=== PATIENT | female | born 1950 | race Caucasian/White ===

== ENCOUNTER → 2017-09-15 13:37 | Outpatient (POV) | payer MEDICARE, OTHER, SELFPAY | PROVIDERS: PCP Nurse Practitioner Family; Visit Provider Internal Medicine | DX: Z00.00 Encounter for general adult medical examination without abnormal findings (principal) ==

== ENCOUNTER → 2017-09-30 12:34 | Outpatient (CLI) | payer MEDICARE, OTHER, SELFPAY ==
[2017-09-30 13:51] VITALS: PULSE 79
[2017-09-30 13:55] VITALS: BP 132/74; PULSE 88; RESP 14; O2SAT 96
[2017-09-30 14:15] VITALS: BP 144/76; PULSE 104; RESP 20; O2SAT 98
--- NOTE | 2017-09-30 14:30 | CT_ITS ---
CT chest wo con HISTORY: ITS.REASON: DYSPNEA ON EXERTION,LUPUS,CHRONIC COUGH ORDERING PHYSICIAN: Kit Dan MD PATIENT AGE: 66 years TECHNIQUE: Axial images obtained. Sagittal and coronal reformatted images are also generated and reviewed. CONTRAST: 75ml Isovue 370 I.V. COMPARISON: None FINDINGS: There are few scattered small lymph nodes within mediastinum, jamarcus, and axilla. The largest mediastinal node is in the pretracheal region and measures 1.7 x 1.4 cm and contains some central coarse calcification. Normal heart size. No pericardial effusion. No mediastinal or hilar mass. No evidence of aortic aneurysm. Mild biapical pleural thickening with some nodularity present in the left apex measuring up to 10 x 5 mm. Small parenchymal opacity is present in medial aspect of the right upper lobe 4 mm may be due to an area of fibrosis. 4 mm nodular opacity right middle lobe nonspecific. There is some subpleural nodularity left upper lobe laterally and may be related to fibrotic change. There are few scattered calcified granulomas in both lungs. There is mild bronchial thickening and mild fibrotic changes in the left lung base. IMPRESSION: 1. 10 x 5 mm left apical nodule possibly related to fibrotic change. There are other areas of subpleural thickening in this region which may be related to fibrosis. Recommend 6 month follow-up to confirm stability. 2. Old granulomatous disease. 3. Mild bronchial thickening consistent with bronchitis
== END ==
PROVIDERS: PCP Nurse Practitioner Family; Visit Provider Internal Medicine
DX: R76.11 Nonspecific reaction to tuberculin skin test without active tuberculosis (principal)
CPT/HCPCS: 36415; 71250; 94060; 94618; 94640; 94726; 94729

== ENCOUNTER → 2018-02-09 09:32 | Outpatient (POV) | payer MEDICARE, OTHER, SELFPAY ==
[2018-02-10 10:25] LABS: Hep A Ab, IgM Negative (Negative); Hepatitis B Core Antibody IgM Negative (Negative); Hepatitis B Surface Antigen Negative (Negative)
[2018-02-11 06:29] LABS: Hepatitis C Antibody <0.1 s/co ratio (0.0-0.9)
== END ==
PROVIDERS: PCP Nurse Practitioner Family; Visit Provider Internal Medicine
DX: D69.6 Thrombocytopenia, unspecified (principal); R53.83 Other fatigue
CPT/HCPCS: 36415; 80074

== ENCOUNTER → 2018-07-15 08:07 | Outpatient (POV) | payer MEDICARE, OTHER, SELFPAY | PROVIDERS: Visit Provider Dentist | DX: Z00.00 Encounter for general adult medical examination without abnormal findings (principal) ==

== ENCOUNTER → 2018-08-02 08:42 | Outpatient (CLI) | payer MEDICARE, OTHER, SELFPAY ==
--- NOTE | 2018-08-02 09:15 | MM_ITS ---
MM Dig screening mamm BI w/CAD ORDERING PHYSICIAN : Feroz Carrasco MD PATIENT AGE: 67 years GENDER: Female COMPARISON: May 2017, March 2016, October 2013 INDICATION: ITS.REASON: SCREENING no hormones. No new complaints noncontributory family history. Previous biopsy upper-outer quadrant right breast TECHNIQUE: Standard CC and MLO images were obtained. R2 CAD reviewed. FINDINGS: Minimal residual fibrolinear elements scattered throughout the breast and most evident towards upper-outer quadrant. No significant new findings no dominant mass nor suspicious appearing calcifications. RIGHT BREAST: Stable right breast. No new findings LEFT BREAST:No new areas of concern follow-up one year A few tiny punctate benign calcifications scattered throughout the left breast but no suspicious grouped calcifications IMPRESSION: Stable bilateral mammogram . No significant new findings either breast Bilateral follow-up in one year BI-RADS Category: 1 Negative RECOMMENDED FOLLOW-UP: 1YR 1 YEAR FOLLOW-UP (A letter has been sent to the patient regarding results of the study.)
== END ==
PROVIDERS: PCP Internal Medicine Adolescent Medicine; Visit Provider Internal Medicine Adolescent Medicine
DX: Z12.31 Encounter for screening mammogram for malignant neoplasm of breast (principal)
CPT/HCPCS: 77067

== ENCOUNTER → 2018-11-17 09:21 | Outpatient (CLI) | payer MEDICARE, OTHER, SELFPAY ==
[2018-11-17 09:40] LABS: Basophils % 0.7 % (0.1-2.0); Eosinophils # 0.4 K/mm3 (0.0-0.4); Eosinophils % 7.1 % (0.1-12.0); Hematocrit 40.3 % (37.0-47.0); Hemoglobin 13.6 g/dL (12.2-16.2); Lymphocytes # 2.4 K/mm3 (0.7-4.5); Lymphocytes % 38.6 % (10-50); Mean Corpuscular HGB Conc 33.8 g/dL (31.8-35.4); Mean Corpuscular Hemoglobin 30.9 pg (27.0-31.2); Mean Corpuscular Volume 91.5 fl (81-99); Mean Platelet Volume 8.7 fl (7.4-10.4); Monocytes # 0.5 K/mm3 (0.1-1.0); Monocytes % 8.8 % (1.7-9.3); Neutrophils # 2.8 K/mm3 (1.8-7.8); Neutrophils % 44.9 % (37.0-80.0); Platelet Count 203 K/mm3 (142-424); Red Blood Count 4.41 M/mm3 (4.20-5.40); Red Cell Distribution Width 13.3 % (11.5-17.5); White Blood Count 6.2 K/mm3 (4.8-10.8)
[2018-11-19 09:25] LABS: Peripheral Smear Review Scanned Result
== END ==
PROVIDERS: Visit Provider Internal Medicine Adolescent Medicine
DX: D69.6 Thrombocytopenia, unspecified (principal); D72.828 Other elevated white blood cell count
CPT/HCPCS: 36415; 85025; 85060

== ENCOUNTER 2018-12-21 09:30 | Outpatient (RCR) | payer MEDICARE, OTHER, SELFPAY ==
--- NOTE | 2018-12-03 13:43 | HMH.OTEV ---
PHYSICIAN CERTIFICATION: I certify the specified therapy services for Haley Bojorquezchie are required, authorized, and reviewed every 30 days.
== END 2018-12-21 09:35 | disposition home or self-care (01) ==
LOC: OT 09:30
PROVIDERS: Visit Provider Nurse Practitioner Family
DX: M25.512 Pain in left shoulder (principal); M25.511 Pain in right shoulder
CPT/HCPCS: 97014; 97110; 97165; G0283

== ENCOUNTER → 2018-12-22 09:48 | Outpatient (CLI) | payer MEDICARE, OTHER, SELFPAY ==
--- NOTE | 2018-12-22 09:59 | XR_ITS ---
XR shoulder LT min 2V HISTORY: ITS.REASON: LT SHOULDER PAIN ORDERING PHYSICIAN: Feroz Carrasco MD PATIENT AGE: 68 years Comparison: 12/22/2014 FINDINGS: Calcification noted at the acromioclavicular joint in the superior periarticular region as before. No fracture or dislocation. No lytic or blastic there is some spurring along the inferior aspect of the acromioclavicular joint. The glenohumeral joint has an unremarkable appearance. IMPRESSION: Acromioclavicular arthropathy not significantly changed
== END ==
PROVIDERS: PCP Internal Medicine Adolescent Medicine; Visit Provider Internal Medicine Adolescent Medicine
DX: M25.512 Pain in left shoulder (principal)
CPT/HCPCS: 73030

== ENCOUNTER → 2019-01-10 13:50 | Outpatient (CLI) | payer MEDICARE, OTHER, SELFPAY ==
--- NOTE | 2019-01-10 13:51 | MR_ITS ---
MR shoulder LT wo con HISTORY:Left shoulder pain with limited range of motion ITS.REASON: shoulder pain ORDERING PHYSICIAN: Carolina Garnett MD PATIENT AGE: 68 years Comparison: 12/22/2018 TECHNIQUE: Standard multiplanar multiecho sequences are performed without contrast. FINDINGS: There is a complete tear of the distal aspect of the supraspinatus tendon with mild retraction and thickening of the tendinous fibers. Prominent hypertrophic changes are present at the acromioclavicular joint with impingement upon the musculotendinous junction of the supraspinatus anteriorly. There is a low-lying acromion laterally with an acromiohumeral space at 5 mm. The infraspinatus tendon and teres minor tendons are intact. There is tendinopathy/tendinosis of the subscapularis tendon with some increased signal intensity distally which may indicate a partial tear. No obvious labral tear. Small shoulder joint effusion. There are osteoarthritic changes of the glenohumeral joint. The bicipital tendon is in place but is not well seen superiorly. No fracture or dislocation. There is a small amount of fluid in the subcoracoid region. IMPRESSION: 1. Complete tear of the supraspinatus tendon with mild retraction of the musculotendinous fibers with associated prominent hypertrophic changes of the acromioclavicular joint and subacromial stenosis 2. Tendinopathy/tendinosis of the subscapularis tendon with possible partial tear distally. 3. Osteoarthritis of the glenohumeral joint with small shoulder joint effusion and subcoracoid bursitis
== END ==
PROVIDERS: PCP Internal Medicine Adolescent Medicine; Visit Provider Orthopaedic Surgery
DX: M25.512 Pain in left shoulder (principal)
CPT/HCPCS: 73221

== ENCOUNTER → 2019-01-13 07:52 | Outpatient (POV) | payer MEDICARE, OTHER, SELFPAY ==
--- NOTE | 2019-01-13 13:30 | XR_ITS ---
XR shoulder LT min 2V HISTORY: Pain ITS.REASON: GRASHEY AND AXILLARY VIEWS PLEASE ORDERING PHYSICIAN: Amanda Hall III, MD PATIENT AGE: 68 years Comparison: 12/22/2018 FINDINGS: Grashey and axillary views are obtained. There is mild osteoarthritic change of the glenohumeral joint with mild narrowing of that joint space. Osteoarthritic changes are present at the acromioclavicular joint without significant subacromial stenosis. No evidence of dislocation. IMPRESSION: Mild osteoarthritis of the acromioclavicular joint and glenohumeral joint not significant changed
== END ==
PROVIDERS: PCP Internal Medicine Adolescent Medicine; Referring Provider Orthopaedic Surgery; Visit Provider Dentist
DX: M25.512 Pain in left shoulder (principal)
CPT/HCPCS: 73030

== ENCOUNTER → 2019-02-17 09:40 | Outpatient (POV) | payer MEDICARE, OTHER, SELFPAY | PROVIDERS: Visit Provider Dentist | DX: Z00.00 Encounter for general adult medical examination without abnormal findings (principal) ==

== ENCOUNTER → 2019-04-04 08:44 | Outpatient (CLI) | payer MEDICARE, OTHER, SELFPAY ==
[2019-04-04 09:22] LABS: Basophils % 0.2 % (0.1-2.0); Eosinophils # 0.3 K/mm3 (0.0-0.4); Eosinophils % 5.3 % (0.1-12.0); Hematocrit 40.9 % (37.0-47.0); Hemoglobin 12.7 g/dL (12.2-16.2); Lymphocytes # 2.1 K/mm3 (0.7-4.5); Lymphocytes % 37.1 % (10-50); Mean Corpuscular Hemoglobin 27.9 pg (27.0-31.2); Mean Corpuscular Volume 90.3 fl (81-99); Mean Platelet Volume 9.1 fl (7.4-10.4); Monocytes # 0.4 K/mm3 (0.1-1.0); Monocytes % 7.7 % (1.7-9.3); Neutrophils # 2.8 K/mm3 (1.8-7.8); Neutrophils % 49.8 % (37.0-80.0); Platelet Count 198 K/mm3 (142-424); Red Blood Count 4.53 M/mm3 (4.20-5.40); Red Cell Distribution Width 13.1 % (11.5-17.5); White Blood Count 5.6 K/mm3 (4.8-10.8)
[2019-04-04 10:33] LABS: Alanine Aminotransferase 23 U/L (12-78); Albumin Level 3.5 gm/dL (3.4-5.0); Alkaline Phosphatase 81 U/L (46-116); Anion Gap 11.3 mEq/L (5-15); Aspartate Amino Transferase 14 U/L (15-37); Bilirubin,Total 0.4 mg/dL (0.2-1.0); Blood Urea Nitrogen 15 mg/dL (7-18); Calcium 9.3 mg/dL (8.5-10.1); Carbon Dioxide 31 mmol/L (21.0-32.0); Chloride 103 mmol/L (98-107); Creatinine,Serum 0.79 mg/dL (0.55-1.02); Estimated Glomerular Filt Rate 72 ml/min (>60); GFR (African American) 87 ML/MIN (>60); Globulin 3.6 gm/dl (1.3-3.2); Glucose 98 mg/dL (74-106); Potassium 4.3 mmoL/L (3.5-5.1); Sodium 141 mmol/L (136-145); Total Protein,Serum 7.1 gm/dL (6.4-8.2)
== END ==
PROVIDERS: Visit Provider Orthopaedic Surgery
DX: M75.100 Unspecified rotator cuff tear or rupture of unspecified shoulder, not specified as traumatic (principal); L03.90 Cellulitis, unspecified
CPT/HCPCS: 36415; 80053; 85025; 93005

== ENCOUNTER → 2019-05-19 08:20 | Outpatient (POV) | payer MEDICARE, OTHER, SELFPAY | PROVIDERS: Visit Provider Dentist | DX: Z00.00 Encounter for general adult medical examination without abnormal findings (principal) ==

== ENCOUNTER → 2019-07-08 08:32 | Outpatient (CLI) | payer MEDICARE, OTHER, SELFPAY ==
--- NOTE | 2019-07-08 08:35 | XR_ITS ---
PROCEDURE: XR SHOULDER LT MIN 2V CLINICAL INDICATION: Shoulder pain Follow-up surgery COMPARISON: SHOU2L [id number] VIEW COMP.-LT from 12/22/2014 SHOU2R [id number] VIEW COMP.-RT from 12/22/2014 [id number] XR shoulder LT min 2V from 12/22/2018 FINDINGS: Status post acromioclavicular osteotomy. There are 3 anchor screws within the proximal humerus. There is good alignment with no evidence of acute fracture or dislocation. Mild osteoarthritic changes are present at the glenohumeral joint. IMPRESSION: Postsurgical changes with no acute finding Dictated by: Larry Mancia MD 07/08/2019 15:29 Electronically signed by Larry Mancia MD in [place] 07/08/2019 15:29
== END ==
PROVIDERS: PCP Internal Medicine Adolescent Medicine; Visit Provider Orthopaedic Surgery
DX: M19.012 Primary osteoarthritis, left shoulder (principal)
CPT/HCPCS: 73030

== ENCOUNTER 2019-08-09 08:30 | Outpatient (RCR) | payer MEDICARE, OTHER, SELFPAY ==
--- NOTE | 2019-04-26 09:08 | HMH.OTOPEV ---
OT Inpatient Evaluation Rehab OT Outpatient Eval Start: 04/26/19 08:45 Freq: Status: Active Protocol: Document 04/26/19 08:46 TFRY (Rec: 04/26/19 09:06 TFRY [id number]) Electronically Signed By Scarlett Cabral OT 04/26/19 08:46 Outpatient Therapy Subjective History Subjective History This is a 68 year old right handed female referred to occupational therapy after undergoing left shoulder arthroscopy 04/12/19 with LHBT tenotomy, SAD. DCE, RTC repair . Patient is unable to recall doing anything to her shoulder it just started hurting. Chief Complaint Pain Symptom Type Dull Symptoms Relieved By Brace/Support Symptoms Aggravated By Physical Activity Prior Functional Limitations None Current Functional Limitations Reaching,Lifting,Housework, Dressing,Driving,Sleeping Symptom Description Activity Dependent Level of pain today (0-10) 0 Pain scale - at its best (0-10) 0 Pain scale - at its worst (0-10) 2 Shoulder/Elbow Eval Shoulder Objective Measurements Shoulder ROM Left Shoulder ROM Limitations Pain Shoulder Abduction Passive Range of 65 Motion (degrees) Shoulder Flexion Passive Range of Motion 75 (degrees) Shoulder External Rotation Passive Range NT of Motion (degrees) Shoulder Internal Rotation Passive Range WFL of Motion (degrees) pain with passive ROM shoulder exam left standard decreased ROM shoulder exam standard left Shoulder MMT Shoulder Strength Reason Not Measured Orthopedic Precautions Elbow Objective Measurements OT Outpatient Assessment Impairments Problems/Impairments Impaired Range of Motion, Impaired Strength,Impaired Lifting,Impaired Dressing, Impaired Shower/Bathing, Impaired Household Care, Subjective C/O Pain Prognosis Rehab Potential Good Clinical Impression Consistent with Diagnosis Yes Short Term Goals Number of Weeks 4 Increase Range of Motion Yes: Left Shoulder PROM - WFL Increase Strength Yes: Left Shoulder strength - 3/5 Improve Ability to Dress Self Yes Improve Ability to Shower/Bathe Self Yes Improve Ability For Household Care Yes Decrease Subjective C/O Pain Yes: pain a 1 at worse Patient to be Ind w/ HEP Yes Patient to be Ind
--- NOTE | 2019-06-23 08:59 | HMH.RHREAS ---
Rehab Reassessment Rehab OP Re-assessment Start: 06/23/19 07:46 Freq: Status: Active Protocol: Document 06/23/19 08:52 TFRY (Rec: 06/23/19 08:59 TFRY [id number]) Electronically Signed By Scarlett Cabral OT 06/23/19 08:52 Rehab Re-assessment Objective Objective Notes Patient seen this date for skilled occupational therapy services. Reassessment of left shoulder ROM; AROM - left shoulder - flexion - 0-160; abduction - 0-130; int. rot. - 0-60; ext. rot. - 0-42. PROM - flexion - 0-164; abduction - 0-160; int. rot. - 0-65; ext. rot. - 0- 52. Reassessment of strength - flexion 3+/5; abduction - 3+/5; int. rot. - 3+/5; ext. rot. - 3+/5. Patient reports that shoulder is 80% better. Patient reports no pain in shoulder and independence with ADL's and house hold tasks. Assessment Progress Assessment Progressing as Expected Assessment Notes ROM and strength improving Patient goals met STG S - 8/8; LTG's 6?8 Goals Not Met strength and independence with HEP Plan Plan Continue occupational therapy working toward unmet goals Frequency of Therapy 2 Duration of therapy 4 PHYSICIAN CERTIFICATION: I certify the specified therapy services for Haley Long are required, authorized, and reviewed every 30 days.
--- NOTE | 2019-07-26 08:32 | HMH.RHREAS ---
Rehab Reassessment Rehab OP Re-assessment Start: 06/23/19 07:46 Freq: Status: Active Protocol: Document 07/26/19 07:52 TFRY (Rec: 07/26/19 08:32 TFRY [id number]) Electronically Signed By Scarlett Cabral OT 07/26/19 07:52 Rehab Re-assessment Subjective Subjective My shoulder is about 80% better. Objective Objective Notes Patient seen this date for skilled occupational therapy services. See exercise flow sheet for exercises. Reassesment of left shoulder: AROM - WFL; Left shoulder Strength - flexion - 4-/5; abduction - 3+/5; int. rot. - 3+/5; external rot. - 3+/5. Patient reporting being able to do more at home with left upper extremity without the pain. Assessment Progress Assessment Progressing as Expected Assessment Notes Strength noted to be improving . Patient goals met All except strength goal and advanced HEP Goals Not Met Strength Plan Plan Continue occupational therapy working on increasing left upper extremity strength. Frequency of Therapy 1x per week Duration of therapy 4 weeks Time and Billing Re-Eval Time 5 Re-Eval Billing Units 0 PHYSICIAN CERTIFICATION: I certify the specified therapy services for Haley Long are required, authorized, and reviewed every 30 days.
== END 2019-08-09 08:35 | disposition home or self-care (01) ==
LOC: OT 08:30
PROVIDERS: PCP Internal Medicine Adolescent Medicine; Visit Provider Orthopaedic Surgery
DX: M75.102 Unspecified rotator cuff tear or rupture of left shoulder, not specified as traumatic (principal)
CPT/HCPCS: 97014; 97110; 97140; 97164; 97165; G0283

== ENCOUNTER → 2019-10-11 07:42 | Outpatient (CLI) | payer MEDICARE, OTHER, SELFPAY ==
--- NOTE | 2019-10-11 08:00 | MM_ITS ---
PROCEDURE: MM DIG SCREENING MAMM BI W/CAD CLINICAL INDICATION: SCREENING There is no personal or family history of breast cancer COMPARISON: [id number] DIG MAMM-DX UNI ADD VIEWS-RT from 04/08/2016 [facility] DIG MAMM-SCREEN VERONICA W/CAD from 05/18/2017 [facility] MM Dig screening mamm BI w/CAD from 08/02/2018 TECHNIQUE: Standard CC and MLO images and 3D Tomosynthesis was obtained. R2 CAD reviewed. FINDINGS: Diffuse scattered fibroglandular densities are seen throughout both breasts and the findings of bilateral and symmetrical.. There is a benign-appearing calcification right breast. There is no suspicious lesion and no suspicious microcalcifications. Malcolm images were reviewed showing no abnormality. IMPRESSION: Moderate diffuse breast density with no suspicious lesions seen BI-RAD Category: 2 Benign Finding(s) FOLLOW-UP: 1YR 1 Year Follow-up (A letter has been sent to the patient regarding results of the study.) Dictated by: Dr. Ming Florez MD 10/13/2019 07:[address] Ming Florez MD in [place] 10/13/2019 07:56
== END ==
PROVIDERS: PCP Internal Medicine Adolescent Medicine; Visit Provider Internal Medicine Adolescent Medicine
DX: Z12.31 Encounter for screening mammogram for malignant neoplasm of breast (principal)
CPT/HCPCS: 77063; 77067

== ENCOUNTER → 2020-09-18 16:16 | Outpatient (CLI) | payer MEDICARE, OTHER, SELFPAY ==
[2020-09-20 11:38] LABS: Covid-19 Nasal PCR Sendout P&C NEGATIVE
== END ==
PROVIDERS: PCP Internal Medicine Adolescent Medicine; Visit Provider Internal Medicine Adolescent Medicine
DX: Z11.52 Encounter for screening for COVID-19 (principal)
CPT/HCPCS: U0004

== ENCOUNTER → 2021-02-14 10:06 | Outpatient (CLI) | payer MEDICARE, OTHER, SELFPAY ==
[2021-02-14 10:39] LABS: Basophils % 0.3 % (0.1-2.0); Eosinophils # 0.4 K/mm3 (0.0-0.4); Eosinophils % 7.2 % (0.1-12.0); Hemoglobin 13.8 g/dL (12.2-16.2); Lymphocytes # 2.5 K/mm3 (0.7-4.5); Lymphocytes % 42.9 % (10-50); Mean Corpuscular HGB Conc 33.5 g/dL (31.8-35.4); Mean Corpuscular Hemoglobin 29.8 pg (27.0-31.2); Monocytes # 0.5 K/mm3 (0.1-1.0); Monocytes % 8.5 % (1.7-9.3); Neutrophils # 2.4 K/mm3 (1.8-7.8); Neutrophils % 41.1 % (37.0-80.0); Platelet Count 97 K/mm3 (142-424); Red Blood Count 4.61 M/mm3 (4.20-5.40); Red Cell Distribution Width 13.2 % (11.5-17.5); White Blood Count 5.8 K/mm3 (4.8-10.8)
[2021-02-14 11:00] LABS: Alanine Aminotransferase 15 U/L (12-78); Albumin Level 4.5 g/dl (3.5-5.0); Albumin/Globulin Ratio 1.5 (1.1-1.8); Alkaline Phosphatase 88 U/L (38-126); Anion Gap 12.7 mEq/L (5-15); Aspartate Amino Transferase 33 U/L (14-36); Bilirubin,Total 0.5 mg/dl (0.2-1.3); Blood Urea Nitrogen 14 mg/dl (7-17); Calcium 9.7 mg/dl (8.4-10.2); Carbon Dioxide 31 mmol/L (22.0-30.0); Chloride 101 mmol/L (98-107); Chol/HDL Ratio 4.3 (1-3.5); Cholesterol 202 mg/dl (140-200); Estimated Glomerular Filt Rate 82 ml/min (>60); GFR (African American) 100 ML/MIN (>60); Globulin 3.1 g/dL (1.3-3.2); Glucose 93 mg/dl (74-100); HDL Cholesterol 47 mg/dl (40-60); Potassium 4.7 mmoL/L (3.5-5.1); Sodium 140 mmol/L (136-145); Total Protein,Serum 7.6 g/dl (6.3-8.2); Triglycerides 349 mg/dl (30-150); VLDL Cholesterol 70 mg/dL (0-40)
[2021-02-14 11:11] LABS: Direct LDL Cholesterol 78.72 mg/dL (100-129)
[2021-02-14 11:17] LABS: 25-OH Vitamin D, Total 42.4 ng/mL (30-100)
[2021-02-14 11:55] LABS: Vitamin B12 > 1000 pg/mL (239-931)
[2021-02-15 09:18] LABS: Thyroid Peroxidase Antibodies 23 IU/mL (0-34)
== END ==
PROVIDERS: Visit Provider Internal Medicine Adolescent Medicine
DX: E78.49 Other hyperlipidemia (principal); E53.8 Deficiency of other specified B group vitamins; K21.9 Gastro-esophageal reflux disease without esophagitis; M75.122 Complete rotator cuff tear or rupture of left shoulder, not specified as traumatic; M19.012 Primary osteoarthritis, left shoulder
CPT/HCPCS: 36415; 80053; 80061; 82306; 82607; 85025; 86376

== ENCOUNTER → 2021-02-22 08:01 | Outpatient (CLI) | payer MEDICARE, OTHER, SELFPAY ==
[2021-02-26 09:54] LABS: H. pylori Stool Ag, EIA Negative (Negative)
== END ==
PROVIDERS: Visit Provider Internal Medicine Adolescent Medicine
DX: K21.9 Gastro-esophageal reflux disease without esophagitis (principal); E03.9 Hypothyroidism, unspecified; E78.49 Other hyperlipidemia; E53.8 Deficiency of other specified B group vitamins
CPT/HCPCS: 87338

== ENCOUNTER → 2021-03-04 09:12 | Outpatient (CLI) | payer MEDICARE, OTHER, SELFPAY ==
--- NOTE | 2021-03-04 09:15 | MM_ITS ---
PROCEDURE INFORMATION: Exam: MG Screening 3D Mammography Exam date and time: 03/04/2021 9:15 AM Age: 70 years old Clinical indication: Encounter for screening mammogram for malignant neoplasm of breast TECHNIQUE: Imaging protocol: Screening tomosynthesis and 2D mammography including computer-aided detection (CAD) when performed. COMPARISON: 1. MG MM DIG SCREENING MAMM BI W/CAD 10/11/2019 8:07 AM 2. MG [facility] MM Dig screening mamm BI w/CAD 08/02/2018 9:22 AM FINDINGS: MAMMOGRAPHY: Breast composition: The breast tissue is composed of scattered areas of fibroglandular density. Mass: None. Architectural distortion: None. Calcifications: No suspicious calcifications. Asymmetric density: None. Skin thickening: None. Axillary adenopathy: None. IMPRESSION: No mammographic evidence of malignancy. Annual screening is recommended unless otherwise clinically indicated. ASSESSMENT: BI-RADS Category 1: Negative
--- NOTE | 2021-03-04 09:15 | XR_ITS ---
PROCEDURE: XR DEXA AXIAL SKELETON CLINICAL HISTORY: ROUTINE MEDICAL EXAM COMPARISON: CR BONE3 BONE DENSITOMETRY(HIP:LT SPINE from 05/18/2017 FINDINGS: The right hip BMD is 0.629 with a T-score of -2.0. The left hip BMD is 0.618 with a T-score of -2.1. The lumbar spine BMD is 1.002 with a T-score of -0.4. Previously the lowest bone density was in the right femoral neck with a T-score of -2.2 IMPRESSION: This patient is considered osteopenic according to the World Health Organization criteria. Bone density is between 10 and 25 percent below young normal. Fracture risk is moderate. Treatment is advised. Based on these results a follow-up exam is recommended in 2 year. Dictated by: Larry Mancia MD 03/05/2021 07:56 Larry Mancia MD in [place] 03/05/2021 07:56
== END ==
PROVIDERS: PCP Internal Medicine Adolescent Medicine; Visit Provider Internal Medicine Adolescent Medicine
DX: Z12.31 Encounter for screening mammogram for malignant neoplasm of breast (principal); Z13.820 Encounter for screening for osteoporosis; Z78.0 Asymptomatic menopausal state
CPT/HCPCS: 77063; 77067; 77080

== ENCOUNTER → 2022-03-21 10:18 | Outpatient (CLI) | payer MEDICARE, OTHER, SELFPAY ==
--- NOTE | 2022-03-21 10:23 | MM_ITS ---
PROCEDURE INFORMATION: Exam: MG Bilateral Screening 3D Mammography Exam date and time: 03/21/2022 10:16 AM Age: 71 years old Clinical indication: Screening examination TECHNIQUE: Imaging protocol: Bilateral Screening tomosynthesis and 2D mammography including computer-aided detection (CAD) when performed. COMPARISON: 1. MG MM DIG SCREENING MAMM BI W/CAD 03/04/2021 9:36 AM 2. MG MM DIG SCREENING MAMM BI W/CAD 10/11/2019 8:07 AM FINDINGS: MAMMOGRAPHY: Breast composition: There are scattered areas of fibroglandular density. Mass: None. Architectural distortion: None. Calcifications: No suspicious calcifications. Asymmetric density: None. Skin thickening: None. Axillary adenopathy: None. IMPRESSION: No mammographic evidence of malignancy. Annual screening is recommended unless otherwise clinically indicated. ASSESSMENT: BI-RADS Category 1: Negative
== END ==
PROVIDERS: PCP Internal Medicine Adolescent Medicine; Visit Provider Internal Medicine Adolescent Medicine
DX: Z12.31 Encounter for screening mammogram for malignant neoplasm of breast (principal)
CPT/HCPCS: 77063; 77067

== ENCOUNTER 2024-04-06 07:09 | Outpatient (CLI) | payer MEDICARE, OTHER, SELFPAY ==
[2024-04-06 07:37] LABS: Basophils % 0.7 % (0.1-2.0); Eosinophils # 0.3 K/mm3 (0.0-0.4); Eosinophils % 5.4 % (0.1-12.0); Hematocrit 39.6 % (37.0-47.0); Hemoglobin 12.5 g/dL (12.2-16.2); Lymphocytes # 2.4 K/mm3 (0.7-4.5); Lymphocytes % 42.9 % (10-50); Mean Corpuscular HGB Conc 31.6 g/dL (31.8-35.4); Mean Corpuscular Hemoglobin 30.4 pg (27.0-31.2); Mean Corpuscular Volume 96.3 fl (81-99); Mean Platelet Volume 9.2 fl (7.4-10.4); Monocytes # 0.4 K/mm3 (0.1-1.0); Monocytes % 7.6 % (1.7-9.3); Neutrophils # 2.5 K/mm3 (1.8-7.8); Neutrophils % 43.5 % (37.0-80.0); Platelet Count 252 K/mm3 (142-424); Red Blood Count 4.12 M/mm3 (4.20-5.40); Red Cell Distribution Width 13.8 % (11.5-17.5); White Blood Count 5.7 K/mm3 (4.8-10.8)
[2024-04-06 09:08] LABS: Alanine Aminotransferase 15 U/L (12-78); Albumin Level 3.7 g/dl (3.5-5.0); Albumin/Globulin Ratio 1.3 (1.1-1.8); Alkaline Phosphatase 75 U/L (38-126); Anion Gap 8.1 mEq/L (5-15); Aspartate Amino Transferase 26 U/L (14-36); Bilirubin,Total 0.3 mg/dl (0.2-1.3); Blood Urea Nitrogen 13 mg/dl (7-17); Calcium 9.4 mg/dl (8.4-10.2); Carbon Dioxide 31 mmol/L (22.0-30.0); Chloride 105 mmol/L (98-107); Chol/HDL Ratio 4.4 (1-3.5); Cholesterol 200 mg/dl (140-200); Estimated Glomerular Filt Rate 82 ml/min (>60); GFR (African American) 99 ML/MIN (>60); Globulin 2.9 g/dL (1.3-3.2); Glucose 90 mg/dl (74-100); HDL Cholesterol 45 mg/dl (40-60); Potassium 4.1 mmoL/L (3.5-5.1); Sodium 140 mmol/L (136-145); Total Protein,Serum 6.6 g/dl (6.3-8.2); Triglycerides 324 mg/dl (30-150); VLDL Cholesterol 65 mg/dL (0-40)
[2024-04-06 09:21] LABS: Direct LDL Cholesterol 80.06 mg/dL (100-129)
[2024-04-06 09:24] LABS: 25-OH Vitamin D, Total 43.8 ng/mL (30-100)
[2024-04-06 09:39] LABS: Thyroid Stimulating Hormone 2.34 uIU/mL (0.465-4.68)
== END 2024-04-06 23:59 | disposition home or self-care (01) ==
LOC: LAB 07:10
PROVIDERS: PCP Internal Medicine Adolescent Medicine; Visit Provider Nurse Practitioner Family
DX: M85.80 Other specified disorders of bone density and structure, unspecified site (principal); E78.2 Mixed hyperlipidemia; D69.6 Thrombocytopenia, unspecified; E03.9 Hypothyroidism, unspecified
CPT/HCPCS: 36415; 80053; 80061; 82306; 84443; 85025

== ENCOUNTER 2024-07-14 13:41 | Outpatient (CLI) | payer MEDICARE, OTHER, SELFPAY | END 2024-07-14 23:59 | disposition home or self-care (01) | LOC: LAB.DROPOF 07-15 08:41 | PROVIDERS: PCP Student in an Organized Health Care Education/Training Program; Visit Provider Student in an Organized Health Care Education/Training Program | DX: R39.9 Unspecified symptoms and signs involving the genitourinary system (principal) | CPT/HCPCS: 87086; 87088; 87186 ==

== ENCOUNTER 2025-05-30 08:49 | Outpatient (CLI) | payer MEDICARE, SELFPAY ==
--- OUTSIDE RECORDS SUMMARY | 2024-12-10 17:30 | XMS_ITS ---
Author Organization [facility] Address [address] [place] [address] Care Team Providers Care Combustion Analyst Name Role Phone Feroz Carrasco Primary Care Provider Migration, Provider Unavailable Unavailable [facility] Encounter Medications Medication SIG (Take, Route, Frequency, Duration) Notes Start Date End Date Status Vitamin B 12 500 MCG 1 tab(s) orally once a day; Duration: 30 day(s) 01/21/2018 Active Calcium 600 + D 600 MG-200 UNITS 1 TAB(S) ORALLY DAILY *Please review and pick correct [facility]ulatio [facility]. If intended option is not shown, discontinue and re-order from Quick Search* Active CLOBETASOL (EQV-TEMOVATE) 0.05% 1 JAZMÍN APPLIED TOPICALLY 2 TIMES A DAY; Duration: 30 DAYS *Please review for potential replacement for e-prescription and drug interaction check* 04/02/2023 Active Alendronate Sodium 35 MG 1 tab(s) orally once a week; Duration: 90 days 03/07/2021 Active Multivitamin - 1 tab(s) orally once a day Active Synthroid 88 MCG 1 tab(s) orally once a day; Duration: 90 days 04/02/2022 Active Meloxicam 15 MG 1 tab(s) orally once a day; Duration: 90 days 04/13/2023 Active Lovastatin 40 MG 1 tab(s) orally once a day at night; Duration: 90 days Active Encounters Encounter Location Date Provider Diagnosis [facility] [address] [place] [address] 12/10/2024 Provider Migration Osteopenia M85.80 ; Arthropathy, multiple sites M12.9 and Mixed hyperlipidemia E78.2 Assessments Encounter Date Diagnosis (ICD Code) Assessment Notes Treatment Notes Treatment Clinical Notes Section Notes 12/10/2024 Osteopenia (ICD-10 - M85.80) 12/10/2024 Arthropathy, multiple sites (ICD-10 - M12.9) 12/10/2024 Mixed hyperlipidemia (ICD-10 - E78.2) Plan Of Treatment Medication Medication Name Sig Start Date Stop Date Notes Alendronate Sodium 35 MG 1 tab(s) orally once a week; Duration: 90 days 03/07/2021 Synthroid 88 MCG 1 tab(s) orally once a day; Duration: 90 days 04/02/2022 Meloxicam 15 MG 1 tab(s) orally once a day; Duration: 90 days 04/13/2023 Lovastatin 40 MG 1 tab(s) orally once a day at night; Duration: 90 days Progress Notes * ETHANHaley RDOB:[birth year] (74 yo F)Acc No.[id number]:12/10/2024 Patient: Haley GARCIA Provider: Vel Lassiter :1950 A ge:74 Y S ex:Female Date:12/10/2024 Address:[address] [place] [address] [id number] Pcp:Feroz Carrasco Subjective: * Chief Complaints: * 1 . Multum To Medis[facility] Conversion Encounter. * Medical History: * Medications: T aking Multivitamin - Tablet 1 tab(s) orally once a day , Taking Calcium 600 + D 600 MG-200 UNITS TABLET 1 TAB(S) ORALLY DAILY , Notes to Pharmacist: *Please review and pick correct strength-formulation from [facility] options. If intended option is not shown, discontinue and re-order from Quick Search*, Taking Vitamin B 12 500 MCG Tablet 1 tab(s) orally once a day , Taking CLOBETASOL (EQV-TEMOVATE) 0.05% CREAM 1 JAZMÍN APPLIED TOPICALLY 2 TIMES A DAY , Notes to Pharmacist: *Please review for potential replacement for e-prescription and drug interaction check* Objective: * Vitals: Assessment: * Assessment: 1. O steopenia - M85.80 2 . A rthropathy, multiple sites - M12.9 3 . M ixed hyperlipidemia - E78.2 Plan: * Treatment: 2. A rthropathy, multiple sites Refill Meloxicam Tablet, 15 MG, 1 tab(s), orally, once a day, 90 days, 90 Tablet, Refills 3. ? 3. M ixed hyperlipidemia Refill Lovastatin Tablet, 40 MG, 1 tab(s), orally, once a day at night, 90 days, 90, Refills 3.? 4. O thers Refill Synthroid Tablet, 88 MCG, 1 tab(s), orally, once a day, 90 days, 90 Tablet, Refills 1. ? * * Electronic signature of Prov ider Migration on 05/30/2025 at 09:08 AM EDT Sign off status: Pending * Provider: Vel munoz Migration Date: 0 12/10/2024 Generated for Juan poe/Jayleen/Maryellenitting on: 0 05/30/2025 09:08 AM EDT
--- OUTSIDE RECORDS SUMMARY | 2025-05-09 04:15 | XMS_ITS ---
Author Organization [facility] D CLIFF Address [address] [place] [address] Care Team Providers Care Assistant Store Manager Trainee Name Role Phone Feroz Carrasco Primary Care Provider [phone] OneliaRicha nina Unavailable [phone] Allergies No Known Allergies Results Component Value Reference Range Notes LIPID PANEL, STANDARD (7600) Reviewed date:05/11/2025 10:32:47 AM Interpretation: Performing Lab:CB, [facility] [address] [facility], [place] HealthEexdWL[address] Stefano Lagunas Notes/Report: NON-FASTING; NON-FASTING; NON-FASTING; NON-FASTING FASTING:YES FASTING: YES CHOLESTEROL, TOTAL 187 <200 mg/dL HDL CHOLESTEROL 50 > OR = 50 mg/dL TRIGLYCERIDES 267 <150 mg/dL If a non-fasting specimen was collected, consider repeat triglyceride testing on a fasting specimen if clinically indicated. Armin et al. J. of Clin. Lipidol. 2015;9:129-169. LDL-CHOLESTEROL 99 Reference range: <100 Desirable range <100 mg/dL for primary prevention; <70 mg/dL for patients with CHD or diabetic patients with > or = 2 CHD risk factors. LDL-C is now calculated using the Rafael-Lnio calculation, which is a validated novel method providing better accuracy than the Friedewald equation in the estimation of LDL-C. Rafael GLYNN et al. SHAN. 2013;310(19): 1760-7863 (http://education.iLogon/faq/NXZ101) CHOL/HDLC RATIO 3.7 <5.0 (calc) NON HDL CHOLESTEROL 137 <130 mg/dL (calc) For patients with diabetes plus 1 major ASCVD risk factor, treating to a non-HDL-C goal of <100 mg/dL (LDL-C of <70 mg/dL) is considered a therapeutic option. COMPREHENSIVE METABOLIC PANE Nahum (39514) Reviewed date:05/11/2025 10:32:47 AM Interpretation: Performing Lab:[facility] [address], [place] Stefano Lagunas Notes/Report: NON-FASTING; NON-FASTING; NON-FASTING; NON-FASTING FASTING:YES FASTING: YES GLUCOSE 91 65-99 mg/dL Fasting reference interval UREA NITROGEN (BUN) 18 7-25 mg/dL CREATININE 0.68 0.60-1.00 mg/dL EGFR 90 > OR = 60 mL/min/1.73m2 BUN/CREATININE RATIO SEE NOTE: 6-22 (calc) Not Reported: BUN and Creatinine are within reference range. SODIUM 140 135-146 mmol/L POTASSIUM 4.2 3.5-5.3 mmol/L CHLORIDE 102 98-110 mmol/L CARBON DIOXIDE 31 20-32 mmol/L CALCIUM 9.5 8.6-10.4 mg/dL PROTEIN, TOTAL 7.3 6.1-8.1 g/dL ALBUMIN 4.4 3.6-5.1 g/dL GLOBULIN 2.9 1.9-3.7 g/dL (calc) ALBUMIN/GLOBULIN RATIO 1.5 1.0-2.5 (calc) BILIRUBIN, TOTAL 0.3 0.2-1.2 mg/dL ALKALINE PHOSPHATASE 69 37-153 U/L AST 18 10-35 U/L ALT 10 6-29 U/L CBC (INCLUDES DIFF/PLT) (639 9) Reviewed date:05/11/2025 10:32:47 AM Interpretation: Performing Lab:[facility] [address], [place] Stefano Lagunas Notes/Report: NON-FASTING; NON-FASTING; NON-FASTING; NON-FASTING FASTING:YES FASTING: YES WHITE BLOOD CELL COUNT 7.1 3.8-10.8 Thousand/ uL RED BLOOD CELL COUNT 4.62 3.80-5.10 Million/uL HEMOGLOBIN 13.2 11.7-15.5 g/dL HEMATOCRIT 42.9 35.0-45.0 % MCV 92.9 80.0-100.0 fL MCH 28.6 27.0-33.0 pg MCHC 30.8 32.0-36.0 g/dL For adults, a slight decrease in the calculated MCHC value (in the range of 30 to 32 g/dL) is most likely not clinically significant; however, it should be interpreted with caution in correlation with other red cell parameters and the patient's clinical condition. RDW 12.9 11.0-15.0 % PLATELET COUNT 167 140-400 Thousand/uL MPV 11.6 7.5-12.5 fL ABSOLUTE NEUTROPHILS 4068 4132-2283 cells/uL ABSOLUTE LYMPHOCYTES 2059 850-3900 cells/uL ABSOLUTE MONOCYTES 724 200-950 cells/uL ABSOLUTE EOSINOPHILS 241 15-500 cells/uL ABSOLUTE BASOPHILS 7 0-200 cells/uL NEUTROPHILS 57.3 LYMPHOCYTES 29.0 MONOCYTES 10.2 EOSINOPHILS 3.4 BASOPHILS 0.1 TSH W/REFLEX TO FT4 (05440) Reviewed date:05/11/2025 10:32:47 AM Interpretation: Performing Lab:CB, [facility] [address] [facility], [facility] RapidsZonjKA[address] Stefano Lagunas Notes/Report: NON-FASTING; NON-FASTING; NON-FASTING; NON-FASTING FASTING:YES FASTING: YES TSH W/REFLEX TO FT4 1.89 0.40-4.50 mIU/L Reason For Referral Reason Screening [facility] Diagnosis 1 Asymptomatic postmen opausal state (Z78.0) Referral Organization [facility] NATY Referring Provider First Name Richa Referring Provider Last Name Onelia Referring Provider Speciality Family Pra ctice Referred Organization [facility] Referred Address [address] [facility], [place], [place],[address], Referred Provider Specialty Diagnostic R adiology General Notes Denise Abdul 2024 10:56:48 AM >sent to [facility] to schedule Referral Priority Routine REASON FOR VISIT AWV Medications Medication SIG (Take, Route, Frequency, Duration) Notes Start Date End Date Status Calcium 600 + D 600 MG-200 UNITS 1 TAB(S) ORALLY DAILY *Please review and pick correct strength-formulatio n from Medispan options. If intended option is not shown, discontinue and re-order from Quick Search* Active Multivitamin - 1 tab(s) orally once a day Active Alendronate Sodium 35 MG 1 tab(s) orally once a week; Duration: 90 days 03/07/2021 Active Meloxicam 15 MG 1 tab(s) orally once a day; Duration: 90 days 04/13/2023 Active Synthroid 88 MCG 1 tab(s) orally once a day; Duration: 90 days 04/02/2022 Active Lovastatin 40 MG 1 tab(s) orally once a day at night; Duration: 90 days Active CLOBETASOL (EQV-TEMOVATE) 0.05% 1 JAZMÍN APPLIED TOPICALLY 2 TIMES A DAY; Duration: 30 DAYS *Please review for potential replacement for e-prescription and drug interaction check* 04/02/2023 Active Vitamin B 12 500 MCG 1 tab(s) orally once a day; Duration: 30 day(s) 01/21/2018 Active Vital Signs Temperature 97.4 degrees Fahrenheit 05/09/20 25 Heart Rate 72 /min 05/09/2025 Blood pressure systolic 126 mm Hg 05/09/20 25 Blood pressure diastolic 68 mm Hg 025 Height 5 ft 7 in in 05/09/2025 Weight 162.2 lbs 05/09/2025 BMI 25.4 kg/m2 05/09/2025 Encounters Encounter Location Date Provider Diagnosis [facility] CLIFF [address] [facility] [address] [place] [address] 05/09/2025 Richa Onelia Osteopenia M85.80 ; Medicare annual wellness visit, subsequent Z00.00 ; Arthropathy, multiple sites M12.9 ; Mixed hyperlipidemia E78.2 ; Thrombocytopenia D69.6 ; Adult hypothyroidism E03.9 ; Lichenoid dermatitis L28.0 ; BMI 25.0-25.9,adult Z68.25 and Asymptomatic postmenopausal state Z78.0 Assessments Encounter Date Diagnosis (ICD Code) Assessment Notes Treatment Notes Treatment Clinical Notes Section Notes 05/09/2025 Osteopenia (ICD-10 - M85.80) 05/09/2025 Medicare annual wellness visit, subsequent (ICD-10 - Z00.00) we reviewed wellness recommendation s. Agrees to Dexa but declines additional screenings at this time otherwise continue current regimen unless indicated on lab results 05/09/2025 Arthropathy, multiple sites (ICD-10 - M12.9) 05/09/2025 Mixed hyperlipidemia (ICD-10 - E78.2) 05/09/2025 Thrombocytopenia (ICD-10 - D69.6) 05/09/2025 Adult hypothyroidism (ICD-10 - E03.9) 05/09/2025 Lichenoid dermatitis (ICD-10 - L28.0) 05/09/2025 BMI 25.0-25.9,adult (ICD-10 - Z68.25) 05/09/2025 Asymptomatic postmenopausal state (ICD-10 - Z78.0) Plan Of Treatment Treatment Notes Assessment Notes Medicare annual wellness [place], [facility] [place] reviewed wellness recommendations. Agrees to Dexa but declines additional screenings at this time otherwise continue current regimen unless indicated on lab results Pending Test Test Name Order Date DEXA Hip and Spine - Screening 5 Referrals Referral Date Details 05/09/2025 05/09/2025, Magdy peña [facility], [address] [facility], [place], [address], Next Appt Details Follow Up: 1 Year,Jr delarosa n: Progress Notes * Haley LONG RDOB:[birth year] (74 yo F)Acc No.[id number]:05/09/2025 Progress Notes Patient: Haley GARCIA Provider: ELLYN Hernandez :1950 A ge:74 Y S ex:Female Date:05/09/2025 Address:[address] [place] [address] [id number] Pcp:Feroz Carrasco Subjective: * Chief Complaints: * 1 . AWV. * HPI: g en: Presents today for routine chronic disease followup and wellness review. She has no acute concerns. She is still following with her ENT specialist regarding cancerous tongue lesion that was resected previously, still sore at times but stable and is able to eat/drink as desired. #1 postmenopausal osteopenia. Started alendronate weekly and tolerating well #2 hypothyroidism, on replacement and due for monitoring labs #3 osteoarthritis, taking meloxicam most days which makes her discomfort tolerable. Denies side effects. worsening morning stiffness, improves after being up and moving around #4 hyperlipidemia, taking statin therapy and tolerating well #5 chronic GERD, well controlled Her has since our last visit, after a long illness. Feels like she is managing reasonably well, trying to visit children more often, attending [employer], etc. * ROS: F UNCTIONAL STATUS: ADLS I ndependent for all ADL/IADL. R ESPIRATORY: no S hortness of breath. n o C hest pain. n o?Cough. C ARDIOLOGY: no D izziness. n o C hest pain. n o P alpitations. n o L eg edema. n o S hortness of breath. C ONSTITUTIONAL: no W eight gain. n o L oss of appetite. n o?Fever. F atigue y es. D ERMATOLOGY: no R ana. G ASTROENTEROLOGY: no N ausea. n o D iarrhea. n o C onstipation. M USCULOSKELETAL: Joint stiffness y es. J oint pain y es. n o?Joint swelling. N EUROLOGY: Reviewed, No Symptoms Reported: Y es. P SYCHOLOGY: no D epression. n o A nxiety. U ROLOGY: Reviewed, No Symptoms Reported: Y es. * Medical History: A rthritis, Hypothyroidism, Vitamin B12 Def. , Hypercholestrolemia, Colonoscopy 2013 with 1 tubular adenoma, Osteopenia, Thrombocytopenia, Cancer removed from tongue. * Surgical History: C holecystectomy , cardiac ablation for SVT - over 20 years ago , Breast biopsy, benign , removal of cancer from tongue- 03/2024. * Hospitalization/Major Diagno stic Procedure: C ardiac ablation , -removal of cancer from tongue 03/2024. * Family History: F ather: . M other: . P aternal Grand Father: . P aternal Grand Mother: . M aternal Grand Father: . M aternal Grand Mother: . Paternal uncle: . P aternal aunt: . M trent uncle: alive, diaebtes, cancer. M atesundeep aunt: alive, diabetes, cancer. S iblings: alive. Honorio carrington: alive. 7 brother(s) , 5 sister(s) - healthy. 2 son(s) - healthy. . * Social History: S moking: no A re you a:: nonsmoker. R ecreational drug use: no. Exercise: no. Home smoke detector use: yes. Caffeine: yes, frequency:2 cups coffee per day. Living Will: Yes. Alcohol: no. Sexually active: yes. Travel outside [place]: no. Occupation: retired farmworker. . * Medications: T aking Multivitamin - Tablet 1 tab(s) orally once a day , Taking Calcium 600 + D 600 MG-200 UNITS TABLET 1 TAB(S) ORALLY DAILY , Notes to Pharmacist: *Please review and pick correct strength-formulation from Media Battlesan options. If intended option is not shown, discontinue and re-order from Quick Search*, Taking Vitamin B 12 500 MCG Tablet 1 tab(s) orally once a day , Taking CLOBETASOL (EQV-TEMOVATE) 0.05% CREAM 1 JAZMÍN APPLIED TOPICALLY 2 TIMES A DAY , Notes to Pharmacist: *Please review for potential replacement for e-prescription and drug interaction check*, Taking Lovastatin 40 MG Tablet 1 tab(s) orally once a day at night , Taking Alendronate Sodium 35 MG Tablet 1 tab(s) orally once a week , Taking Synthroid 88 MCG Tablet 1 tab(s) orally once a day , Taking Meloxicam 15 MG Tablet 1 tab(s) orally once a day , Medication List reviewed and reconciled with the patient * Allergies: N .K.D.A. Objective: * Vitals: N urse: KJ, Pain: 0, Temp: 97.4, RR: 18, HR: 72, BP: 126/68, Ht: 5 ft 7 in, Wt: 162.2, BMI:25.4. * Examination: G eneral Examination: General P leasant and Cooperative, NAD on RA,. Oral cavity: M oist membranes. Heart: R RR, No m/r/g/h, Nl S1S2, No JVD, 2(+) symmetric pulses, No edema,. Lungs: c lear to auscultation,. Abdomen: s oft, NT/ND, BS present. Neurologic Exam: Alert and oriented x 3. Skin: w ithout acute rashes. Peripheral pulses: n ormal (2+) bilaterally. Extremities: n ormal ROM,, no clubbing, no edema, soft spider veins lower extremities. neck s upple,, no thyromegaly,, no lymphadenopathy,. Psych p leasant to mildly depressed affect. ? Assessment: * Assessment: 1. M edicare annual wellness visit, subsequent - Z00.00 (Primary) 2 . O steopenia - M85.80 3 . A rthropathy, multiple sites - M12.9 4 .?Mixed hyperlipidemia - E78.2 5 . T hrombocytopenia - D69.6 6 . Adult hypothyroidism - E03.9 7 . L ichenoid dermatitis - L28.0 ?8. B PR 25.0-25.9,adult - Z68.25 9 . A symptomatic postmenopausal state - Z78.0 Plan: * Treatment: 2. M ixed hyperlipidemia L AB: LIPID PANEL, STANDARD (7600) Value Reference Range T RIGLYCERIDES 267 H <150 - mg/dL * C HOLESTEROL, TOTAL 187 <200 - mg/dL * H DL CHOLESTEROL 50 > OR = 50 - mg/dL * L DL-CHOLESTEROL 99 - mg/dL (calc) * C HOL/HDLC RATIO 3.7 <5.0 - (calc) * N ON HDL CHOLESTEROL 137 H <130 - mg/dL (calc) * Ralph Montiel 05/11/2025 10:32:33 AM EDT > patient informedThis lab was reviewed by Ralph Montiel on 05/11/2025 at 10:32 AM EDT ?LAB: COMPREHENSIVE METABOLIC PANEL (48808)* Value Reference Range G LUCOSE 91 65-99 - mg/dL * U GARCÍA NITROGEN (BUN) 18 7-25 - mg/dL * C REATININE 0.68 0.60-1.00 - mg/dL * B UN/CREATININE RATIO SEE NOTE: 6-22 - (calc) * S ODIUM 140 135-146 - mmol/L * P OTASSIUM 4.2 3.5-5.3 - mmol/L * C HLORIDE 102 98-110 - mmol/L * C ARBON DIOXIDE 31 20-32 - mmol/L * C ALCIUM 9.5 8.6-10.4 - mg/dL * P ROTEIN, TOTAL 7.3 6.1-8.1 - g/dL * A LBUMIN 4.4 3.6-5.1 - g/dL * G LOBULIN 2.9 1.9-3.7 - g/dL (calc ) * A LBUMIN/GLOBULIN RATIO 1.5 1.0-2.5 - (calc) * B ILIRUBIN, TOTAL 0.3 0.2-1.2 - mg/dL * A LKALINE PHOSPHATASE 69 37-153 - U/L * A ST 18 10-35 - U/L * A LT 10 6-29 - U/L * E GFR 90 > OR = 60 - mL/min/1 .73m2 * Ralph Montiel 05/11/2025 10:32:33 AM EDT > patient informedThis lab was reviewed by Ralph Montiel on 05/11/2025 at 10:32 AM EDT ?LAB: CBC (INCLUDES DIFF/PLT) (0266)* Value Reference Range W SHAVONNE BLOOD CELL COUNT 7.1 3.8-10.8 - Thousan d/uL * R ED BLOOD CELL COUNT 4.62 3.80-5.10 - Million/ uL * H EMOGLOBIN 13.2 11.7-15.5 - g/dL * H EMATOCRIT 42.9 35.0-45.0 - % * M CV 92.9 80.0-100.0 - fL * M CH 28.6 27.0-33.0 - pg * M CHC 30.8 L 32.0-36.0 - g/dL * R DW 12.9 11.0-15.0 - % * P LATELET COUNT 167 140-400 - Thousand/u L * N EUTROPHILS 57.3 - % * A BSOLUTE NEUTROPHILS 4068 6737-8748 - cells/uL * L YMPHOCYTES 29.0 - % * A BSOLUTE LYMPHOCYTES 2059 850-3900 - cells/uL * M ONOCYTES 10.2 - % * A BSOLUTE MONOCYTES 724 200-950 - cells/uL * E OSINOPHILS 3.4 - % * A BSOLUTE EOSINOPHILS 241 15-500 - cells/uL * B ASOPHILS 0.1 - % * A BSOLUTE BASOPHILS 7 0-200 - cells/uL * M PV 11.6 7.5-12.5 - fL * Ralph Montiel 05/11/2025 10:32:33 AM EDT > patient informedThis lab was reviewed by Ralph Montiel on 05/11/2025 at 10:32 AM EDT ?LAB: TSH W/REFLEX TO FT4 (36113)* Value Reference Range T SH W/REFLEX TO FT4 1.89 0.40-4.50 - mIU/L * Ralph Montiel 05/11/2025 10:32:33 AM EDT > patient informedThis lab was reviewed by Ralph Montiel on 05/11/2025 at 10:32 AM EDT 3.?Thrombocytopenia?LAB: LIPID PANEL, STANDARD (7600)* Value Reference Range T RIGLYCERIDES 267 H <150 - mg/dL * C HOLESTEROL, TOTAL 187 <200 - mg/dL * H DL CHOLESTEROL 50 > OR = 50 - mg/dL * L DL-CHOLESTEROL 99 - mg/dL (calc) * C HOL/HDLC RATIO 3.7 <5.0 - (calc) * N ON HDL CHOLESTEROL 137 H <130 - mg/dL (calc) * Ralph Montiel 05/11/2025 10:32:33 AM EDT > patient informedThis lab was reviewed by Ralph Montiel on 05/11/2025 at 10:32 AM EDT ?LAB: COMPREHENSIVE METABOLIC PANEL (09265)* Value Reference Range G LUCOSE 91 65-99 - mg/dL * U GARCÍA NITROGEN (BUN) 18 7-25 - mg/dL * C REATININE 0.68 0.60-1.00 - mg/dL * B UN/CREATININE RATIO SEE NOTE: 622 - (calc) * S ODIUM 140 135-146 - mmol/L * P OTASSIUM 4.2 3.5-5.3 - mmol/L * C HLORIDE 102 98-110 - mmol/L * C ARBON DIOXIDE 31 20-32 - mmol/L * C ALCIUM 9.5 8.6-10.4 - mg/dL * P ROTEIN, TOTAL 7.3 6.1-8.1 - g/dL * A LBUMIN 4.4 3.6-5.1 - g/dL * G LOBULIN 2.9 1.9-3.7 - g/dL (calc ) * A LBUMIN/GLOBULIN RATIO 1.5 1.0-2.5 - (calc) * B ILIRUBIN, TOTAL 0.3 0.2-1.2 - mg/dL * A LKALINE PHOSPHATASE 69 37-153 - U/L * A ST 18 10-35 - U/L * A LT 10 6-29 - U/L * E GFR 90 > OR = 60 - mL/min/1 .73m2 * Ralph Montiel 05/11/2025 10:32:33 AM EDT > patient informedThis lab was reviewed by Ralph Montiel on 05/11/2025 at 10:32 AM EDT ?LAB: CBC (INCLUDES DIFF/PLT) (6888)* Value Reference Range W SHAVONNE BLOOD CELL COUNT 7.1 3.8-10.8 - Thousan d/uL * R ED BLOOD CELL COUNT 4.62 3.80-5.10 - Million/ uL * H EMOGLOBIN 13.2 11.7-15.5 - g/dL * H EMATOCRIT 42.9 35.0-45.0 - % * M CV 92.9 80.0-100.0 - fL * M CH 28.6 27.0-33.0 - pg * M CHC 30.8 L 32.0-36.0 - g/dL * R DW 12.9 11.0-15.0 - % * P LATELET COUNT 167 140-400 - Thousand/u L * N EUTROPHILS 57.3 - % * A BSOLUTE NEUTROPHILS 4068 4831-9272 - cells/uL * L YMPHOCYTES 29.0 - % * A BSOLUTE LYMPHOCYTES 2059 850-3900 - cells/uL * M ONOCYTES 10.2 - % * A BSOLUTE MONOCYTES 724 200-950 - cells/uL * E OSINOPHILS 3.4 - % * A BSOLUTE EOSINOPHILS 241 15-500 - cells/uL * B ASOPHILS 0.1 - % * A BSOLUTE BASOPHILS 7 0-200 - cells/uL * M PV 11.6 7.5-12.5 - fL * Ralph Montiel 05/11/2025 10:32:33 AM EDT > patient informedThis lab was reviewed by Ralph Montiel on 05/11/2025 at 10:32 AM EDT ?LAB: TSH W/REFLEX TO FT4 (65926)* Value Reference Range T SH W/REFLEX TO FT4 1.89 0.40-4.50 - mIU/L * Ralph Montiel 05/11/2025 10:32:33 AM EDT > patient informedThis lab was reviewed by Ralph Montiel on 05/11/2025 at 10:32 AM EDT 4.?Adult hypothyroidism?LAB: LIPID PANEL, STANDARD (7600)* Value Reference Range T RIGLYCERIDES 267 H <150 - mg/dL * C HOLESTEROL, TOTAL 187 <200 - mg/dL * H DL CHOLESTEROL 50 > OR = 50 - mg/dL * L DL-CHOLESTEROL 99 - mg/dL (calc) * C HOL/HDLC RATIO 3.7 <5.0 - (calc) * N ON HDL CHOLESTEROL 137 H <130 - mg/dL (calc) * Ralph Montiel 05/11/2025 10:32:33 AM EDT > patient informedThis lab was reviewed by Ralph Montiel on 05/11/2025 at 10:32 AM EDT ?LAB: COMPREHENSIVE METABOLIC PANEL (13806)* Value Reference Range G LUCOSE 91 65-99 - mg/dL * U GARCÍA NITROGEN (BUN) 18 7-25 - mg/dL * C REATININE 0.68 0.60-1.00 - mg/dL * B UN/CREATININE RATIO SEE NOTE: 6-22 - (calc) * S ODIUM 140 135-146 - mmol/L * P OTASSIUM 4.2 3.5-5.3 - mmol/L * C HLORIDE 102 98-110 - mmol/L * C ARBON DIOXIDE 31 20-32 - mmol/L * C ALCIUM 9.5 8.6-10.4 - mg/dL * P ROTEIN, TOTAL 7.3 6.1-8.1 - g/dL * A LBUMIN 4.4 3.6-5.1 - g/dL * G LOBULIN 2.9 1.9-3.7 - g/dL (calc ) * A LBUMIN/GLOBULIN RATIO 1.5 1.0-2.5 - (calc) * B ILIRUBIN, TOTAL 0.3 0.2-1.2 - mg/dL * A LKALINE PHOSPHATASE 69 37-153 - U/L * A ST 18 10-35 - U/L * A LT 10 6-29 - U/L * E GFR 90 > OR = 60 - mL/min/1 .73m2 * Ralph Montiel 05/11/2025 10:32:33 AM EDT > patient informedThis lab was reviewed by Ralph Montiel on 05/11/2025 at 10:32 AM EDT ?LAB: CBC (INCLUDES DIFF/PLT) (1374)* Value Reference Range W SHAVONNE BLOOD CELL COUNT 7.1 3.8-10.8 - Thousan d/uL * R ED BLOOD CELL COUNT 4.62 3.80-5.10 - Million/ uL * H EMOGLOBIN 13.2 11.7-15.5 - g/dL * H EMATOCRIT 42.9 35.0-45.0 - % * M CV 92.9 80.0-100.0 - fL * M CH 28.6 27.0-33.0 - pg * M CHC 30.8 L 32.0-36.0 - g/dL * R DW 12.9 11.0-15.0 - % * P LATELET COUNT 167 140-400 - Thousand/u L * N EUTROPHILS 57.3 - % * A BSOLUTE NEUTROPHILS 4068 9932-0541 - cells/uL * L YMPHOCYTES 29.0 - % * A BSOLUTE LYMPHOCYTES 2059 850-3900 - cells/uL * M ONOCYTES 10.2 - % * A BSOLUTE MONOCYTES 724 200-950 - cells/uL * E OSINOPHILS 3.4 - % * A BSOLUTE EOSINOPHILS 241 15-500 - cells/uL * B ASOPHILS 0.1 - % * A BSOLUTE BASOPHILS 7 0-200 - cells/uL * M PV 11.6 7.5-12.5 - fL * Whitney Montieljose Maurer 05/11/2025 10:32:33 AM EDT > patient informedThis lab was reviewed by Ralph Montiel on 05/11/2025 at 10:32 AM EDT ?LAB: TSH W/REFLEX TO FT4 (01752)* Value Reference Range T SH W/REFLEX TO FT4 1.89 0.40-4.50 - mIU/L * Dinesh Ralph Maurer 05/11/2025 10:32:33 AM EDT > patient informedThis lab was reviewed by Ralph Montiel on 05/11/2025 at 10:32 AM EDT 5.?Asymptomatic postmenopausal state?Imaging: DEXA Hip and Spine - Screening* ? Referral To: ?Reason:Screening [facility] * Procedure Codes: G 0439 ANNUAL WELLNESS VST; PPS SUBSQT VST, G8399 PT W/DXA DOCUMENT OR ORDER, 1123F ADVANCED DIRECTIVE - HAS A LIVING WILL, G8420 BMI documented as normal, no follow up required., G8510 NEGATIVE SCREENING F/U NOT REQUIRED, G9903 Pt scrn tbco id as non user, G8783 NORMAL BP READING DOC F/U NOT RQR * Preventive Medicine: Counseling: Nahum anneing will H as living will. JAZMÍN Screening: F alls: Future screening for fall risks H ave you had two or more falls in the past year? Y es, H ave you had any falls with injury in the past year? N o. Depression Screening: P HQ 2 F eeling down depressed or hopeless N o mild, intermittent. has good support system. Immunizations: i nfluenza H ave you had a flu shot since the most recent May 08 ? Y es. P neumonia vaccine: Status for Older Adults A re you up-to-date on your pneumonia vaccine? yes or no B oth Prevnar and Pneumovax. S hingrix D iscussed and will consider. C OVID C ompleted series. R SV vaccination D iscussed, will consider. Screening / Special Tests: M ammogram 2 022, normal. Declines repeat. P ap Smear o les age 63 years. C olonoscopy o les due, declines repeat. B one mineral Density o steopenia 2020, repeat due. L stella Cancer Screening N ot indicated - nonsmoker.? * Follow Up: 1 Year,prn * * Sign off status: Completed true * Provider: Jenny Rousseau CORRECTIONAL COOK Date: 05/09/2025 Generated for Juan poe/Jayleen/eTransmitting on: 05/30/2025 09:08 AM EDT History and Physical Notes * Examination Category Sub-Category Detail Notes Category Not es General Examination Heart: RRR, No m/r/ g/h, Nl S1S2, No JVD, 2(+) symmetric pulses, No edema, Lungs: clear to auscultatio n, Abdomen: soft, NT/ND, BS pres ent Extremities: normal ROM,, no club lita, no edema, soft spider veins lower extremities Skin: without acute rashes Neurologic Exam: Alert and oriented x 3 Oral cavity: Moist membranes Peripheral pulses: normal (2+) bilatera lly neck supple,, no thyromeg lilliana,, no lymphadenopathy, General Pleasant and Coopera tive, NAD on RA, Psych pleasant to mildly d epressed affect Consultation Request Notes Referral Date Referring Provider Referred Provider Not es 05/09/2025 Richa Rousseau , Screening [facility]
--- NOTE | 2025-05-30 08:54 | XR_ITS ---
FINAL REPORT TECHNIQUE: Bone densitometry calculations of the lumbar spine and left hip were obtained. CLINICAL HISTORY: SCREENING COMPARISON: 03/04/2021 FINDINGS: Using L1-4, the bone mineral density of the spine is 1.06 g/cm2, corresponding to T-score of 0 point and a Z score of 2.7. This is within the range of normal limits. Previously was 1.002 with a T-score of -0.4. Using the left hip, the bone mineral density of the femoral neck is 0.624 g/cm2, corresponding to a T-score of -2.0 and a Z-score of 0.1. This is within the range of osteopenia. Previously was 0.618 with a T-score of -2.1. NOTE: T-score: Standard deviation compared with peak bone mass of young adult mean. *Following the recommendations of the International Society of Bone densitometry, classification of hip BMD is based on the lower of two T-scores; total hip or femoral neck. IMPRESSION: 1. Bone mineral density of the lumbar spine within the range of normal limits. 2. Bone mineral density of the left femoral neck within the range of osteopenia. Reviewed, Interpreted and Dictated by Sayra Oseguera MD Transcribed by Maddy Escobedo Authenticated and [facility]
--- OUTSIDE RECORDS SUMMARY | 2025-05-30 09:08 | XMS_ITS | Clinical Summary ---
Author Organization Healthcare Address [address] [place] [address] Care Team Providers Care Die Fitter Name Role Phone Feroz Carrasco MD Primary Care Provider [phone] Allergies No known active allergies Medications omega-3 (Fish Oil) 1200 MG capsule 09/15/2017 Active lovastatin (Mevacor) 40 MG tablet Take 1 tablet (40 mg) by mouth every night. 09/15/2017 Active meloxicam (Mobic) 15 MG tablet Take 1 tablet (15 mg) by mouth 1 (one) time each day. 09/15/2017 Active levothyroxine (Synthroid) 100 MCG tablet Take 1 tablet (100 mcg) by mouth 1 (one) time each day. 02/09/2018 Active Cyanocobalamin 2500 MCG sublingual tablet 1 (one) time each day. 09/15/2017 Active cholecalciferol (Cholecalcifero l) 250 MCG (19942 UT) capsule 09/15/2017 Active Calcium Carb-Cholecalci ferol (CALCIUM 600/VITAMIN D3 PO) Take by mouth 1 (one) time each day. Active acetaminophen (Tylenol) 325 MG tablet Take 2 tablets (650 mg) by mouth every 8 (eight) hours. 100 tablet 03/02/2024 Active amoxicillin-cla vulanate (Augmentin) 875-125 MG tablet Take 1 tablet by mouth 2 (two) times a day. 14 tablet 03/02/2024 Active chlorhexidine (Peridex) 0.12 % solution Use 15 mL in the mouth or throat 2 (two) times a day. 473 mL 03/02/2024 Active ibuprofen 400 MG tablet Take 1 tablet (400 mg) by mouth every 8 (eight) hours. 30 tablet 03/02/2024 Active oxyCODONE (Roxicodone) 5 MG immediate release tablet Take 1 tablet (5 mg) by mouth every 6 (six) hours if needed for moderate pain or severe pain. 9 tablet 03/02/2024 Active lidocaine (Xylocaine) 2 % solution Take 5 mL by mouth if needed for mild pain. 100 mL 03/02/2024 Active nutritional drink (Boost Plus) liquid liquid Take 237 mL by mouth 2 (two) times a day. 4000 mL 03/02/2024 Active Hospital, Clinic, or Other Facility Administered Medication Ordered Dose Route Frequency Start Date End Date Status methylPREDNISolone acetate (DEPO-Medrol) injection 60 mgIndications:Lesion of tongue 60 mg IM Once 03/02/2024 Active Active Problems Problem Noted Date Diagnosed Date Lesion of tongue 03/01/2024 Tongue lesion 02/03/2024 Immunizations Immunization Administration Dates Next Due Influenza, Unspecified 06/24/2017 Family History Medical History Relation Name Comments Colon cancer Father Conversions - Other Mother IPF (idi opathic pulmonary fibrosis) Asthma Other 1 Colon cancer Other 2 Diabetes Other 3 Rheum arthritis Sibling Relation Name Status Comments Father Mother Other 1 Other 2 Other 3 Sibling Social History Tobacco Use Types Packs/Day Years Used Date Smoking Tobacco: Never Smokeless Tobacco: Never Tobacco Cessation:Counseling Given: Not Answered Alcohol Use Standard Drinks/Week Comments Not Currently 0 (1 standard drink = 0.6 oz pur e alcohol) CAGE ASSESSMENT Answer Date Recorded Cage unable to access Not on file 03/01/2024 Cage max number of drinks Not on file 2023 Cage Beverages a week Not on file 03/01/2024 Have you ever felt you should CUT down on your d rinking? 0 03/01/2024 Have you been ANNOYED by people criticizing your drinking? 0 03/01/2024 Have you felt GUILTY about your drinking? 0 03/01/2024 Have you had a drink first t horacio in the morning (EYE-LICENSED NUCLEAR OPERATOR) to steady your nerves or to get rid of a hangover? 0 03/01/2024 CAGE Questionnaire Score 0 024 Comments No Sex and Gender Information Value Date Recorded Sex Assigned at Not on file Legal Sex Female 8:36 PM EDT Gender Identity Not on file Sexual Orientation Not on file Last Filed Vital Signs Vital Sign Reading Time Taken Comments Blood Pressure 145/66 12/28/2024 10:41 AM EDT Pulse 98 06/29/2024 2:47 PM EDT Temperature 35.9 C (96.6 F) 03/02/2024 10:55 AM EDT Respiratory Rate 20 03/02/2024 10:55 AM EDT Oxygen Saturation 91% 03/02/2024 10:55 AM EDT Inhaled Oxygen Concentration - - Weight 71.3 kg (157 lb 3 oz) 12/28/2024 10:40 AM EDT Height 170.2 cm (5' 7 ) 12/28/2024 10:40 AM EDT Body Mass Index 24.62 12/28/2024 10:40 AM EDT Plan of Treatment Upcoming Encounters Date Type Department Care Team (Late st Contact Info) Description 07/26/2025 11:00 AM EST Office Visit [facility] [address] [place] [address] Drake Rizvi, MD GUI [address] [place] [address] Health Maintenance Due Date Last Done Comments Dental Prophylaxis 1948 Dental X-Ray: Bitewings 1948 Dental X-Ray: Full Mouth 1948 [facility]-Bone Density Scan 1948 [facility]-Depression Screening 1948 [facility]-Hepatitis C Screening 1948 [facility]-Medicare Annual Wellness (AWV) 1948 [facility]-/Child/Adol SDOH Screenings 1948 [facility]- SDOH Screenings 1966 [facility]-Adult SDOH Screenings 1966 [facility]-DTaP,Tdap,and Td Vaccines (1 - Tdap) 1967 [facility]-Zoster Vaccines (1 of 2) 1967 Dental Oral Exam 11/06/1994 05/08/1994 [facility]-Pneumococcal Vaccine: 50+ Years (2 of 2 - PPSV23, PCV20, or PCV21) 06/18/2017 04/23/2017 [facility]-RSV Vaccine: 60+ Years or (1 - 1-dose 75+ series) 2023 [id number]-97 Vaccine ( season) 2025 01/09/2022, 05/30/2021, 11/08/2020, Additional history exists [facility]-Influenza Vaccine (#1) 05/08/202506/29, 06/12/2023, 06/08/2020, Additional history exists HPV Vaccines Aged Out No longer eligi ble based on patient's age to complete this topic [facility]-HIB Vaccines Aged Out No longer e ligible based on patient's age to complete this topic [facility]-Hepatitis A Vaccines Aged Out No longer eligible based on patient's age to complete this topic [facility]-IPV Vaccines Aged Out No longer e ligible based on patient's age to complete this topic [facility]-Rotavirus Vaccines Aged Out No lo nger eligible based on patient's age to complete this topic Procedures Procedure Name Priority Date/Time Associated Diagnosis Comments COMPREHENSIVE ORAL EVALUATION - NEW OR ESTABLISHED PATIENT Routine 05/08/1994 12:00 AM EDT from Last 3 Months or Most Recently Relevant to Health Maintenance Insurance MEDICARE [employer]ET[employer] Advance Directives * Full Code (Latest Code Status on File) Date Activated Date Inactivated Comments 03/01/2024 12:46 PM 03/02/2024 4:27 PM Question Answer Comments Patient has decision-making capacity? Yes Care Teams Die Fitter Relationship Specialty Start Date End Date Feroz Carrasco MD [address] [place] [address] PCP - General 01/18/21
--- OUTSIDE RECORDS SUMMARY | 2025-05-30 09:08 | XMS_ITS | Patient Health Record ---
Author Organization [facility] Address [address] [place] [address] Care Team Providers Care Rejoiner Name Role Phone Feroz Carrasco Primary Care Provider Richa Rousseau Unavailable [phone] Migration, Provider Unavailable Unavailable Allergies No Known Allergies Results Component Value Reference Range Notes LIPID PANEL, STANDARD (7600) Reviewed date:05/11/2025 10:32:47 AM Interpretation: Performing Lab:[facility], [facility] [address] [facility] [place] Stefano Lagunas Notes/Report: NON-FASTING; NON-FASTING; NON-FASTING; NON-FASTING [...] factors. LDL-C is now calculated using the Rafael-Lino calculation, which is a validated novel method providing better accuracy than the Friedewald equation in the estimation of LDL-C. Rafael GLYNN et al. SHAN. 2013;310(19): 4176-2051 (http://education.Typemock/faq/BDB731) CHOL/HDLC RATIO 3.7 <5.0 (calc) NON HDL CHOLESTEROL 137 <130 mg/dL (calc) For patients with diabetes plus 1 major ASCVD risk factor, treating to a non-HDL-C goal of <100 mg/dL (LDL-C of <70 mg/dL) is considered a therapeutic option. COMPREHENSIVE METABOLIC PANE (86730) Reviewed date:05/11/2025 10:32:47 AM Interpretation: Performing Lab:[facility] [address], [place] Stefano Lagunas Notes/Report: NON-FASTING; NON-FASTING; NON-FASTING; NON-FASTING [...] Reviewed date:05/11/2025 10:32:47 AM Interpretation: Performing Lab:[facility] [address], [place] Stefano Lagunas Notes/Report: NON-FASTING; NON-FASTING; NON-FASTING; NON-FASTING FASTING:YES FASTING: YES WHITE BLOOD CELL COUNT 7.1 3.8-10.8 Thousand/ uL RED BLOOD CELL COUNT 4.62 3.80-5.10 Million/uL HEMOGLOBIN 13.2 11.7-15.5 g/dL HEMATOCRIT 42.9 35.0-45.0 % MCV 92.9 80.0-100.0 fL MCH 28.6 27.0-33.0 pg MCHC 30.8 32.0-36.0 g/dL For adults, a slight decrease in the calculated MCHC not clinically significant; however, it should be interpreted with caution in correlation with other red cell parameters and the patient's clinical condition. value (in the range of 30 to 32 g/dL) is most likely RDW 12.9 11.0-15.0 % PLATELET COUNT 167 140-400 Thousand/uL MPV 11.6 7.5-12.5 fL ABSOLUTE NEUTROPHILS 4068 4274-9046 cells/uL ABSOLUTE LYMPHOCYTES 2059 850-3900 cells/uL ABSOLUTE MONOCYTES 724 200-950 cells/uL ABSOLUTE EOSINOPHILS 241 15-500 cells/uL ABSOLUTE BASOPHILS 7 0-200 cells/uL NEUTROPHILS 57.3 LYMPHOCYTES 29.0 MONOCYTES 10.2 EOSINOPHILS 3.4 BASOPHILS 0.1 TSH W/REFLEX TO FT4 (78517) Reviewed date:05/11/2025 10:32:47 AM Interpretation: Performing Lab:[facility], [facility] Stefano Lagunas Notes/Report: NON-FASTING; NON-FASTING; NON-FASTING; NON-FASTING FASTING:YES FASTING: YES TSH W/REFLEX TO FT4 1.89 0.40-4.50 mIU/L Medications Medication SIG (Take, Route, Frequency, Duration) Notes Start Date End Date Status Calcium 600 + D 600 MG-200 UNITS 1 TAB(S) ORALLY DAILY *Please review and pick correct strength-formulatio n from Elecar options. If intended option is not shown, discontinue and re-order from Quick Search* Active Multivitamin - 1 tab(s) orally once a day Active Alendronate Sodium 35 MG TAKE 1 TABLET ONCE WEEKLY; Duration: 84 Active Lovastatin 40 MG TAKE 1 TABLET NIGHTLY; Duration: 90 Active CLOBETASOL (EQV-TEMOVATE) 0.05% 1 JAZMÍN APPLIED TOPICALLY 2 TIMES A DAY; Duration: 30 DAYS *Please review for potential replacement for e-prescription and drug interaction check* 04/02/2023 Active Vitamin B 12 500 MCG 1 tab(s) orally once a day; Duration: 30 day(s) 01/21/2018 Active Meloxicam 15 MG 1 tab(s) orally once a day; Duration: 90 days 04/13/2023 Active Synthroid 88 MCG 1 tab(s) orally once a day; Duration: 90 days 04/02/2022 Active Immunizations Vaccine Route Administration Date Status Comme nts Prevnar PCV-13 (Pneumococcal conjugate 13) IM Intramuscular 04/23/2017 Administered Pneumovax 23 IM Intramuscular 06/18/2015 Administered Influenza (Fluzone)--Medicar e only IM Intramuscular 06/18/2015 Administered Influenza (Fluzone)--Medicar e only IM Intramuscular 06/03/2016 Administered Influenza (Fluzone)--Medicar e only IM Intramuscular 06/09/2017 Administered Lot # [id number] Exp date 02/05/18 Fluzone High Dose IM Intramuscular 05/25/2018 Administered Fluzone High Dose IM Intramuscular 06/17/2019 Administered Fluzone High Dose IM Intramuscular 06/08/2020 Administered Fluzone High Dose IM Intramuscular 06/12/2021 Administered Fluzone High Dose IM Intramuscular 06/17/2022 Administered Fluvirin--Influenz a vaccine 3+ year IM Intramuscular 06/22/2013 Administered Fluvirin--Influenz a vaccine 3+ year IM Intramuscular 06/14/2014 Administered Problems Problem Type SNOMED Code ICD Code Onset Dates Problem Status W/U Status Risk Notes Problem Mixed hyperlipidemia (378068004) Mixed hyperlipidemia (E78.2) Active confirmed Problem Chronic pain (36457584) Other chronic pain (G89.29) Active confirmed Problem Seasonal allergic rhinitis (776864799) Other seasonal allergic rhinitis (J30.2) Active confirmed Problem Allergic rhinitis (81608440) Other allergic rhinitis (J30.89) Active confirmed Problem Allergic rhinitis (70869574) Allergic rhinitis (J30.9) Active confirmed Problem Vitamin B12 deficiency (non anemic) (61727309) B12 deficiency (E53.8) Active confirmed Problem Gastroesophageal reflux disease (557464663) GERD without esophagitis (K21.9) Active confirmed Problem Osteopenia (838257585) Osteopenia (M85.80) Active confirmed Problem Thrombocytopenia (998765410) Thrombocytopenia (D69.6) Active confirmed Problem Chronic cough (45742070) Chronic cough (R05) Active confirmed Problem Abnormal mammogram (707134129) Abnormal mammogram (R92.8) Active confirmed Problem Insomnia disorder related to another mental disorder (00615181) Psychophysiological insomnia (F51.04) Active confirmed Problem Arthropathy (429709567) Arthropathy, multiple sites (M12.9) Active confirmed Problem Hypothyroidism (21028908) Adult hypothyroidism (E03.9) Active confirmed Problem Dyslipidemia (969203488) Dyslipidemia (high LDL; low HDL) (E78.4) Active confirmed Problem Osteopenia (234801288) Osteopenia of multiple sites (M85.89) Active confirmed Problem Contracture of palmar fascia (839112842) Dupuytren contracture (M72.0) Active confirmed Problem Increased blood leukocyte number (235084509) Other elevated white blood cell (WBC) count (D72.828) Active confirmed Problem Lichenoid dermatitis (57508895) Lichenoid dermatitis (L28.0) Active confirmed Problem Lipoprotein above reference range (finding) (509940498) Elevated Lipoprotein(a) (E78.41) Active confirmed Vital Signs Heart Rate 72 /min 05/09/2025 Temperature 97.4 degrees Fahrenheit 05/09/2025 Blood pressure diastolic 68 mm Hg 05/09/2025 Height 5 ft 7 in in 05/09/2025 Blood pressure systolic 126 mm Hg 05/09/2025 Weight 162.2 lbs 05/09/2025 BMI 25.4 kg/m2 05/09/2025 Encounters Encounter Location Date Provider Diagnosis [facility] [address] [place] [address] 12/10/2024 Provider Migration Osteopenia M85.80 ; Arthropathy, multiple sites M12.9 and Mixed hyperlipidemia E78.2 [facility] [address] [place] [address] 05/09/2025 Richa Rousseau Osteopenia M85.80 ; Medicare annual wellness visit, subsequent Z00.00 ; Arthropathy, multiple sites M12.9 ; Mixed hyperlipidemia E78.2 ; Thrombocytopenia D69.6 ; Adult hypothyroidism E03.9 ; Lichenoid dermatitis L28.0 ; BMI 25.0-25.9,adult Z68.25 and Asymptomatic postmenopausal state Z78.0 [facility] [address] [address] 08/26/2024 Feroz Besson [facility] [address] [address] 02/14/2025 Feroz Besson [place] [address] [address] 03/27/2025 Feroz Besson Arthropathy, multipl e sites M12.9 Assessments Encounter Date Diagnosis (ICD Code) Assessment Notes Treatment Notes Treatment Clinical Notes Section Notes 12/10/2024 Osteopenia (ICD-10 - M85.80) 03/27/2025 Arthropathy, multiple sites (ICD-10 - M12.9) 05/09/2025 Osteopenia (ICD-10 - M85.80) 05/09/2025 Medicare annual wellness visit, subsequent (ICD-10 - Z00.00) we reviewed wellness recommendation s. Agrees to Dexa but declines additional screenings at this time otherwise continue current regimen unless indicated on lab results 05/09/2025 Arthropathy, multiple sites (ICD-10 - M12.9) 12/10/2024 Arthropathy, multiple sites (ICD-10 - M12.9) 12/10/2024 Mixed hyperlipidemia (ICD-10 - E78.2) 05/09/2025 Mixed hyperlipidemia (ICD-10 - E78.2) 05/09/2025 Thrombocytopenia (ICD-10 - D69.6) 05/09/2025 Adult hypothyroidism (ICD-10 - E03.9) 05/09/2025 Lichenoid dermatitis (ICD-10 - L28.0) 05/09/2025 BMI 25.0-25.9,adult (ICD-10 - Z68.25) 05/09/2025 Asymptomatic postmenopausal state (ICD-10 - Z78.0) Plan Of Treatment Pending Test Test Name Order Date N-B12 level 05/31/2007 N-Urine Culture and Sensitivity 07/13/20 07 N-Folate 05/31/2007 N-Thyroid Stimulating Hormone (TSH) 05/09 DEXA Hip and Spine - Screening N-CMP 05/31/2007 Occupational Therapy : Eval & Treatment 11/25/2018 H-CBC with AUTO DIFF 08/07/2008 H-VITAMIN B12 10/16/2016 H-VITAMIN B12 01/27/2012 H-VITAMIN B12 06/05/2015 H-CMP 06/05/2015 H-CMP 08/07/2008 H-LIPID PANEL 08/07/2008 H-LIPID PANEL 06/05/2015 H-LIPID PANEL 10/25/2013 H-TSH 10/25/2013 H-TSH 06/05/2015 H-TSH 01/27/2012 H-TSH 08/07/2008 H-VIT D, 25-HYDROXY 10/16/2016 C-CBC 08/15/2011 C-CBC 04/23/2017 C-Sed Rate (ESR) 04/23/2017 C-CMP 04/23/2017 C-CMP 08/15/2011 C-LIPID PANEL 08/15/2011 C-LIPID PANEL 04/23/2017 C-TSH 04/23/2017 C-TSH 08/15/2011 C-MEGAN 08/15/2011 C-VITAMIN B12 08/15/2011 c-peripheral blood smear 04/27/2017 H-PTT 03/14/2013 h-single stranded DNA 09/16/2011 h-double stranded DNA 09/16/2011 Pulmonary Function Test- Complete 2015 M-Complete Blood Count Man Dif 9 M-Peripheral Smear Review 11/17/2018 M-Vitamin B12 02/14/2021 M-Vitamin D 25 Hydroxy 02/14/2021 M-Vitamin D 25 Hydroxy 04/04/2024 M-H. pylori Stool Ag, EIA 02/14/2021 M-COVID 19 PCR SEND OUT 09/18/2020 Future Test Test Name Order Date C-CBC 07/16/2011 C-CMP 07/16/2011 C-LIPID PANEL 07/16/2011 C-TSH 07/16/2011 C-VITAMIN B12 07/16/2011 H-CMP 02/22/2014 H-LIPID PANEL 02/22/2014 H-TSH 02/22/2014 H-CRP 12/23/2014 H-CCCP 12/23/2014 Insurance Providers Payer Name Payer Address Payer Phone Subscriber Number Group Number Insured Name Patient Relationship to Insured Coverage Start Date Coverage End Date [place] [address] [place] [address] [id number] Haley Long Self - patient is the insured [employer] [address] [address] [place] [address] [id number] Haley Long Self - patient is the insured 7 Medications Administered Medication Instructions Date of Administration Dosage Notes Ceftriaxone 500 03/01/2014 500 mg Ceftriaxone 500 06/01/2014 500 mL Triamcinolone Acetonide 40mg Injection 08/28/2018 1 mL Kenalog 03/01/2014 1 Kenalog 06/01/2014 1 mL Medical (General) History Medical History History ICD Code Arthritis hypothyroidism Vitamin B12 Def. 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
--- OUTSIDE RECORDS SUMMARY | 2025-05-30 09:08 | XMS_ITS | Encounter Summary ---
Author Organization [facility] Address [address] [id number] Care Team Providers Care Osteopathic Resident Name Role Phone Feroz Carrasco MD Primary Care Provider [phone] Reason for Referral * Consultation (Routine) - Closed Specialty Diagnoses / Procedures Referred By Libby isabel Referred To Contact Oral Surgery Diagnoses Irritative hyperplasia of oral mucosa Feroz Carrasco MD [address] [place] [address] Phone: tel: fax: [facility] registered client associate [facility] [address] [place] [address] [address] [place] [address] Phone: tel: Referral ID Status Reason Start Date Expiration Date V isits Requested Visits Authorized [id number] Closed Specialty Services Required 01/13/2024 07/14/2025 1 1 Encounter Details Date Type Department Care Team (Late st Contact Info) Description 01/13/2024 [facility] [address] [place] [address] Feroz Carrasco MD [address] [place] [address] Papillary hyperplasia of palate (Primary Dx); Irritative hyperplasia of oral mucosa Social History Tobacco Use Types Packs/Day Years Used Date Smoking Tobacco: Never Comments Unknown Sex and Gender Information Value Date Recorded Sex Assigned at Not on file Legal Sex Female 8:36 PM EDT Gender Identity Not on file Sexual Orientation Not on file documented as of this encounter Plan of Treatment Upcoming Encounters Date Type Department Care Team (Late st Contact Info) Description 07/26/2025 11:00 AM EST Office Visit [facility] registered client associate [facility] [address] [place] [address] Drake Rizvi DMD, MD [address] [place] [address] Scheduled Referrals Name Type Priority Associated Diagnoses Order Schedule Ambulatory referral to Oral Maxillofacial Surgery Outpatient Referral Routine Irritative hyperplasia of oral mucosa Ordered: 01/13/2024 documented as of this encounter Visit Diagnoses Diagnosis Papillary hyperplasia of palate- Primary Other and unspecified diseases of the oral soft tissues Irritative hyperplasia of oral mucosa Other and unspecified diseases of the oral soft tissues documented in this encounter Care Teams Osteopathic Resident Relationship Specialty Start Date End Date Feroz Carrasco MD [address] [place] [address] PCP - General 01/18/21 documented as of this encounter
== END 2025-05-30 23:59 | disposition home or self-care (01) ==
LOC: RAD 08:50
PROVIDERS: PCP Nurse Practitioner Family; Visit Provider Nurse Practitioner Family
DX: M85.88 Other specified disorders of bone density and structure, other site (principal); Z78.0 Asymptomatic menopausal state
CPT/HCPCS: 77080